=== PATIENT | female | born 1995 | race Two or more races ===

== ENCOUNTER 2016-07-23 22:28 | Emergency (ER) | payer OTHER ==
--- NOTE | ~2016-07-23 | US106 ---
[facility] Service of [facility] & [facility] RADIOLOGY TEXT RESULTS PATIENT: CARLOS BURT LOCATION: [facility] : [birth year] UNIT #: [id number] AGE: [address]: Andrea Patrick MD SEX: F ORDER DR: [id number] [facility] [address] [place], [place] [address] [id number] E MR#: [id number] Acc #: [id number] NAME: CARLOS BURT : 1995 SEX: F STUDY DATE/TIME: 07/24/2016 00:56 UNIT: [facility] ROOM: STUDY DESCRIPTION: US Preg Uterus Transvaginal Attending Physician: Andrea Patrick M.D. Ordering Physician: Andrea Patrick M.D. Primary Care Physician: No Primary Care Physician MEDICAL IMAGING REPORT This report is preliminary unless electronic signature is present EXAM Ultrasound 07/24 at 00:56 INDICATIONS Midline pelvic pain for 1 day. Patient is . FINDINGS Limited sonographic evaluation is performed of the pelvis in multiple planes. Study shows a single fetus. Heart rate is 163 beats per minute by M-mode Doppler. movement noted by the control systems drafting officer. Amniotic fluid index is normal at about 20.4. The placenta is posterior and fundal. Limited evaluation of the fetus anatomically is grossly normal. Four-chamber heart is present. Estimated age by ultrasound measurement is 20 weeks 5 days for an estimated date of confinement of 12/06/2016. IMPRESSION Single fetus with a heart rate of 163 beats per minute. This is very limited exam but the fetus does appear grossly normal. The amniotic fluid index appears within normal limits. Placenta is posterior and fundal. Estimated age by ultrasound measurement is 20 weeks 5 days. Dedicated obstetrical follow up is recommended. Dictated by... Darnell Millan Jr., M.D. THIS IS AN ELECTRONICALLY VERIFIED REPORT Darnell Millan Jr., M.D. at 07/24/2016 5:24 AM CHE/[place] TD: 07/24/2016 05:15 JOB #: [id number] MEDICAL IMAGING REPORT [facility] A Service of [facility] & [facility] RADIOLOGY TEXT RESULTS PATIENT: CARLOS BURT LOCATION: [facility], [facility]CT #: [id number] : [birth year] UNIT #: [id number] AGE: [address]: Andrea Patrick MD SEX: F ORDER DR: Page 1 of 1 COPY
--- NOTE | ~2016-07-23 | US63 ---
[facility] A Service of [facility] & [facility] RADIOLOGY TEXT RESULTS PATIENT: CARLOS BURT LOCATION: [facility] : [birth year] UNIT #: [id number] AGE: [address]: Andrea Patrick MD SEX: F ORDER DR: [id number] [facility] [address] [place], [place] [address] [id number] E MR#: [id number] Acc #: [id number] NAME: CARLOS BURT : 1995 SEX: F STUDY DATE/TIME: 07/24/2016 00:56 UNIT: [facility] ROOM: STUDY DESCRIPTION: US /Mat >14Wk / Attending Physician: Andrea Patrick M.D. Ordering Physician: Andrea Patrick M.D. MEDICAL IMAGING REPORT This report is preliminary unless electronic signature is present REVISED REPORT EXAM Ultrasound 07/24 at 00:56 INDICATIONS Midline pelvic pain for 1 day. Patient is . FINDINGS Limited sonographic evaluation is performed of the pelvis in multiple planes. Study shows a single fetus. Heart rate is 163 beats per minute by M-mode Doppler. movement noted by the classifying machine operator. Amniotic fluid index is normal at about 20.4. The placenta is posterior and fundal. Limited evaluation of the fetus anatomically is grossly normal. Four-chamber heart is present. Estimated age by ultrasound measurement is 20 weeks 5 days for an estimated date of confinement of 12/06/2016. IMPRESSION Single fetus with a heart rate of 163 beats per minute. This is very limited exam but the fetus does appear grossly normal. The amniotic fluid index appears within normal limits. Placenta is posterior and fundal. Estimated age by ultrasound measurement is 20 weeks 5 days. Dedicated obstetrical follow up is recommended. Dictated by... Darnell Millan Jr., M.D. THIS IS AN ELECTRONICALLY VERIFIED REPORT Darnell Millan Jr., M.D. at 07/26/2016 6:04 AM CHE/[place] TD: 07/24/2016 05:15 [facility]S. [facility] A Service of [facility] & [facility] RADIOLOGY TEXT RESULTS PATIENT: CARLOS BURT LOCATION: [facility] #: [id number] : [birth year] UNIT #: [id number] AGE: [address]: Andrea Patrick MD SEX: F ORDER DR: JOB #: [id number] CC: Sovera/invision Please Delete MEDICAL IMAGING REPORT Page 1 of 1 COPY
[2016-07-23 22:42] LABS: URINE SOURCE CLEAN CATCH
[2016-07-23 22:45] LABS: BASOPHIL% 0.5 % (0-2.5); EOSINOPHIL% 0.3 % (0.0-7.0); HEMATOCRIT 35.1 % (35.0-45.0); HEMOGLOBIN 12.1 gm/dL (12.0-16.0); LYMPHOCYTE# 1.1 X10e3 (1.0-3.5); LYMPHOCYTE% 14.1 % (17.0-45.0); MEAN CELL VOLUME 91.4 FL (83-96); MEAN CORPUSCULAR HEMOGLOBIN 31.4 PG (28-34); MEAN CORPUSCULAR HGB CONC 34.4 g/dL (30-36); MEAN PLATELET VOLUME 9.1 FL (6.5-11.5); MONOCYTE# 0.5 X10e3 (0-1.0); MONOCYTE% 6.3 % (3.0-12.0); NEUTROPHIL% 78.8 % (40-75); PLATELET COUNT 172 X10e3 (140-420); RED BLOOD COUNT 3.84 X10e (3.90-5.30); RED CELL DISTRIBUTION WIDTH 13.1 % (11.0-15.5); WHITE BLOOD COUNT 7.7 X10e3 (4.0-10.5)
[2016-07-23 22:47] LABS: DIFF IND NO
[2016-07-23 22:49] LABS: URINE APPEARANCE CLEAR; URINE BILIRUBIN NEG (NEG); URINE BLOOD 3+ (NEG); URINE COLOR YELLOW; URINE GLUCOSE NEG (NEG); URINE KETONE NEG (NEG); URINE LEUKOCYTE ESTERASE 1+ (NEG); URINE NITRATE NEG (NEG); URINE PH 6.5 (5-8); URINE PROTEIN NEG (NEG); URINE SPECIFIC GRAVITY 1.014 (1.003-1.035); URINE UROBILINOGEN 0.2 MG/DL (NEG)
[2016-07-23 22:53] LABS: CULTURE INDICATED? YES; U HYALINE CASTS AUWI 0-2 /[LPF]; URBCS1 AUWI 100-200 /[HPF] (0-2); URINE BACTERIA AUWI NEG (NEGATIVE); URINE SQUAMOUS EPITHELIAL CELL OCC /[HPF]
[2016-07-23 23:12] LABS: ALBUMIN SERUM 3.8 g/dL (3.5-5.0); BILIRUBIN,TOTAL 0.7 mg/dL (0.2-2.0); CALCIUM SERUM 8.7 mg/dL (8.4-10.2); CREATININE SERUM 0.3 mg/dL (0.6-1.4); GLOM FILT RATE Estimated 164.9 mL/min (>60); POTASSIUM 3.3 mmol/L (3.5-5.1); PROTEIN TOTAL SERUM 7.1 g/dL (6.0-8.3)
[2016-07-23 23:15] LABS: BILIRUBIN, DIRECT 0.1 mg/dL (0.0-0.2); BILIRUBIN,INDIRECT 0.6 mg/dL (0.0-0.9)
[2016-07-26 15:56] LABS: CHLAMYDIA TRACH Not Detected (Not Detected); N GONOR Not Detected (Not Detected)
== END 2016-07-24 02:00 | disposition home or self-care (01) ==
LOC: CED 22:28
PROVIDERS: Emergency Medicine
DX: O23.40 Unspecified infection of urinary tract in pregnancy, unspecified trimester (principal); R31.9 Hematuria, unspecified
CPT/HCPCS: 36415; 76805; 76817; 80048; 80076; 81003; 82150; 83690; 84703; 85025; 87086; 87491; 87591; 87808; 87905; 99284

== ENCOUNTER → 2016-08-09 05:40 | Emergency (ER) | payer OTHER | END | disposition left against medical advice (07) | LOC: CED 05:40 | DX: Z53.21 Procedure and treatment not carried out due to patient leaving prior to being seen by health care provider (principal) | CPT/HCPCS: 87651 ==